=== PATIENT | female | born 1995 | race Caucasian/White ===

== ENCOUNTER 2022-06-09 08:27 | Inpatient (IN) | payer BC ==
[2022-06-09] MEDS ORDERED: hydrALAZINE 20 MG/ML VIAL SLOW IVP PRN (08:47)
[2022-06-09] MEDS ORDERED: Lanolin Ointment 7 GM TUBE TOP PRN (08:47)
[2022-06-09] MEDS ORDERED: Milk Of Magnesia 30 ML UDCUP PO PRN (08:47)
[2022-06-09] MEDS ORDERED: HYDROcodone/Acetaminophen 5/325 mg Tablet PO PRN ×2 (08:47)
[2022-06-09] MEDS ORDERED: Benzocaine-Menthol 82.5 ML CAN TOP PRN (08:47)
[2022-06-09] MEDS ORDERED: Bisacodyl 10 MG SUPP PR PRN (08:47)
[2022-06-09] MEDS ORDERED: Lidocaine 1% (PF) 30 ML VIAL ONE (08:50)
[2022-06-09] MEDS ORDERED: NS w/ Oxytocin 30 units 500 ML IV SCH (09:00)
[2022-06-09] MEDS ORDERED: Oxytocin 10 UNITS/ML VIAL IM SCH (10:00)
[2022-06-09] MEDS: Docusate 100 MG CAP PO SCH ×2 (12:06→22:17)
[2022-06-09] MEDS: Prenatal Vitamin 1 TAB PO SCH (12:06)
[2022-06-09] MEDS: Ibuprofen 800 MG TAB PO SCH ×2 (14:08→22:17)
[2022-06-09] MEDS: Ferrous Sulfate 325 MG TAB PO SCH (17:06)
[2022-06-10] MEDS: Ibuprofen 800 MG TAB PO SCH ×2 (05:11→08:38)
[2022-06-10 08:10] VITALS: BP 111/76; TEMP 97.8
[2022-06-10] MEDS: Docusate 100 MG CAP PO SCH (08:39)
[2022-06-10] MEDS: Ferrous Sulfate 325 MG TAB PO SCH (08:39)
[2022-06-10] MEDS: Prenatal Vitamin 1 TAB PO SCH (08:40)
[2022-06-10] MEDS ORDERED: Boostrix 0.5 ML (Tdap) VIAL IM ONE (08:47)
== END 2022-06-10 12:10 | disposition home or self-care (01) | DRG 807 ==
LOC: CSHLD/OP 08:27 → CSHLD 08:31 → CSHPP 11:45
PROVIDERS: ADMIT Obstetrics & Gynecology; ATTEND Obstetrics & Gynecology
PROC: 10E0XZZ Delivery of Products of Conception, External Approach (ICD-10-PCS; principal; 2022-06-09)
DX: O62.3 Precipitate labor (principal); Z37.0 Single live birth; Z88.2 Allergy status to sulfonamides; Z3A.40 40 weeks gestation of pregnancy
CPT/HCPCS: 99285